=== PATIENT | female | born 1945 | race Two or more races ===

== ENCOUNTER 2021-01-23 22:51 | Emergency (ER) | payer OTHER, MEDICARE ==
[~2021-01-23] VITALS: Ht 157.5 cm; Wt 56.7 kg
--- NOTE | 2021-01-23 23:15 | NUR ---
[id number] R EYEBROW LACERATION S/P TRIP AND FELL, HEAD PAIN, DENIES KO. NO NEURO DEFECITS NO CHANGES IN VISION DENIES N/V. PLACED ON MONITOR ALL V/S STABLE. A&O X4 BREATHING EVEN AND UNLABORED. EMT AT BEDSIDE FOR WOUND CARE.
--- NOTE | 2021-01-23 23:40 | NUR ---
CERVICAL COLLAR APPLIED
--- NOTE | 2021-01-23 23:48 | NUR ---
PT BEING TAKEN TO CT
[2021-01-23] MEDS ORDERED: HYDROCODONE/APAP 5/325MG TABLET ONE (23:55)
[2021-01-24] MEDS ORDERED: HYDROCODONE/APAP 5/325MG TABLET PO ONE
[2021-01-24] MEDS ORDERED: TDAP [DIPH/PERTUSSIS/TET] 0.5 ML VIAL IM ONE ×2 (00:10)
[2021-01-24] MEDS ORDERED: LIDOCAINE 1%-EPI 1:100,000 20 ML VIAL ONE (00:17)
[2021-01-24] MEDS ORDERED: ACETAMINOPHEN 325 MG TABLET ONE (00:18)
[2021-01-24] MEDS ORDERED: ACETAMINOPHEN 325 MG TABLET PO ONE (00:30)
--- NOTE | 2021-01-24 01:48 | NUR ---
Patient discharged to home in stable condition. Written and verbal after care instructions given. Patient verbalizes understanding of instruction.
[2021-01-24 02:24] VITALS: BP 149/80
== END 2021-01-24 01:50 | disposition home or self-care (01) ==
LOC: ER 23:01
DX: S01.111A Laceration without foreign body of right eyelid and periocular area, initial encounter (principal); N18.6 End stage renal disease; W01.0XXA Fall on same level from slipping, tripping and stumbling without subsequent striking against object, initial encounter; Y93.89 Activity, other specified; Y92.89 Other specified places as the place of occurrence of the external cause; Y99.8 Other external cause status
CPT/HCPCS: 12011; 70450; 70486; 72125; 90471; 90715; 99284; J3490; L0172